=== PATIENT | male | born 1960 | race Caucasian/White ===

== ENCOUNTER 2022-11-30 09:50 | Inpatient (IN) ==
[~2022-11-30 09:50] MED LIST: Buffered Lidocaine 1% SYRIN 1 ml INTRADERM ONE; Dexamethasone IV 4 MG/ML VIAL 1 ml VIAL ONE; Lactated Ringers 1000 ml BAG 1,000 ML IV SCH; Midazolam 2 mg/2 ml VIAL 1 mg/ml 2 ml VIAL (2 mg) ONE; Ondansetron 4 mg VIAL 2 MG/ML 2 ml VIAL ONE; Phenylephrine IV 10 MG/ML 1 ml VIAL ONE; fentaNYL 100 mcg/2 ml 50 MCG/ML VIAL ONE
[2022-11-30] MEDS ORDERED: Midazolam 2 mg/2 ml VIAL 1 mg/ml 2 ml VIAL (2 mg) ONE (10:10)
[2022-11-30] MEDS ORDERED: ceFAZolin 2 GM in NS PREMIX 2 GM/100 ML BAG IVPB ONE (10:19)
[2022-11-30] MEDS ORDERED: Acetaminophen IV 1 GM/100ML 1,000 MG/100 ML BAG IV PRN (12:24)
[2022-11-30] MEDS ORDERED: HYDROmorphone 1 MG/1 ML SYRINGE IV PRN (12:24)
[2022-11-30] MEDS ORDERED: Ondansetron 4 mg VIAL 2 MG/ML 2 ml VIAL IV PRN ×2 (12:24→15:39)
[2022-11-30] MEDS ORDERED: fentaNYL 100 mcg/2 ml 50 MCG/ML VIAL IV PRN (12:24)
[2022-11-30] MEDS ORDERED: Naloxone 0.4 mg VIAL 0.4 mg/ml 1 ml VIAL IV PRN (12:24)
[2022-11-30] MEDS ORDERED: ROPIVACAINE 5 MG/ML 30 ML BTL (0.5%) ONE ×2 (12:33→12:49)
[2022-11-30] MEDS ORDERED: Ketamine HCL 50 mg/ml 10 ml VIAL (500 MG) ONE (13:13)
[2022-11-30] MEDS ORDERED: Acetaminophen IV 1 GM/100ML 1,000 MG/100 ML BAG IV ONE (13:46)
[2022-11-30] MEDS ORDERED: Glycopyrrolate IV 0.2 MG/ML 1 ML VIAL ONE (14:22)
[2022-11-30] MEDS ORDERED: Morphine 2 MG/ML SYRINGE IV PRN (15:39)
[2022-11-30] MEDS ORDERED: Lactulose 30 ml UDC PO PRN (15:39)
[2022-11-30] MEDS ORDERED: Ondansetron ODT 4 mg TAB 4 MG TAB PO PRN (15:39)
[2022-11-30] MEDS ORDERED: Magnesium Hydroxide LIQ 30 ML UDC PO PRN (15:39)
[2022-11-30] MEDS: Lactated Ringers 1000 ml BAG 1,000 ML IV SCH (17:52)
[2022-11-30] MEDS: GLUCOS SUL PO SCH (18:38)
[2022-11-30] MEDS: [UNRECOGNIZED DRUG - OTHER] PO SCH (18:38)
[2022-11-30] MEDS: Magnesium Hydroxide LIQ 30 ML UDC PO SCH (20:44)
[2022-11-30] MEDS: ceFAZolin 1 GM ADVAN 1 GM in NS 0.9% 50 ML 50 ML IVPB SCH (21:24)
[2022-12-01] MEDS: Lactated Ringers 1000 ml BAG 1,000 ML IV SCH (04:08)
[2022-12-01] MEDS: ceFAZolin 1 GM ADVAN 1 GM in NS 0.9% 50 ML 50 ML IVPB SCH ×2 (05:37→13:02)
[2022-12-01 07:18] LABS: Hematocrit 38 % (42-52); Hemoglobin 13.1 g/dL (14.0-18.0); Mean Platelet Volume 9.1 fL (7.4-10.4); Platelet Count 192 10^3/uL (150-450)
[2022-12-01 07:27] LABS: Calcium 8.9 mg/dL (8.6-10.3); Creatinine, Serum 0.83 mg/dL (0.67-1.17); Potassium 4.2 mmol/L (3.5-5.0)
[2022-12-01] MEDS: GLUCOS SUL PO SCH (08:46)
[2022-12-01] MEDS: [UNRECOGNIZED DRUG - OTHER] PO SCH (08:46)
[2022-12-01] MEDS: Magnesium Hydroxide LIQ 30 ML UDC PO SCH (08:54)
[2022-12-01] MEDS ORDERED: Vitamin THERAPEUTIC TAB PO SCH (09:00)
[2022-12-01 12:09] VITALS: BP 122/64
== END 2022-12-01 13:49 | disposition home or self-care (01) | DRG 302 ==
LOC: INTOOBSV 09:50 → AA 09:50 → SSU 17:16
PROVIDERS: ADMIT Orthopaedic Surgery Adult Reconstructive Orthopaedic Surgery; ATTEND Orthopaedic Surgery Adult Reconstructive Orthopaedic Surgery